=== PATIENT | male | born 1965 | race Caucasian/White ===

== ENCOUNTER → 2021-11-07 | Outpatient (CLI) | LOC: M SOG 15:20 | PROVIDERS: ATTEND Orthopaedic Surgery Hand Surgery | DX: M25.512 Pain in left shoulder (principal) ==

== ENCOUNTER → 2021-12-20 | Outpatient (CLI) | payer BC | LOC: M PLAIMG 09:20 | PROVIDERS: ATTEND Orthopaedic Surgery Hand Surgery | DX: S86.012A Strain of left Achilles tendon, initial encounter (principal); X58.XXXA Exposure to other specified factors, initial encounter; Y92.9 Unspecified place or not applicable; Y93.9 Activity, unspecified; Y99.9 Unspecified external cause status ==